=== PATIENT | male | born 1965 | race Caucasian/White ===

== ENCOUNTER 2022-03-13 01:51 | Day surgery (SDC) | payer OTHER, SELFPAY ==
[2022-03-12 11:04] VITALS: BMI 28.3
[2022-03-13] VITALS (9 sets, daily range): BP systolic 96–135; BP diastolic 62–112; PULSE 58–79; RESP 12–20; TEMP 36.3–36.6; O2SAT 93–99; BMI 28.8
[2022-03-13 10:09] LABS: Basophils Absolute Auto 0.1 K/mm3 (0.0-0.1); Basophils Percent Auto 0.6 % (0.2-1.2); Eosinophils Absolute Auto 0.2 K/mm3 (0-0.3); Hematocrit 46.2 % (42.0-52.0); Immature Granulocyte Absolute 0.07 K/mm3 (0.00-0.031); Immature Granulocyte Percent A 0.6 % (0-0.5); Lymphocytes Absolute Auto 2.26 K/mm3 (0.9-3.2); Lymphocytes Percent Auto 20.7 % (18.3-44.2); Mean Corpuscular HGB Conc 34.6 g/dl (32-36); Mean Corpuscular Hemoglobin 31.4 pg (26-34); Mean Corpuscular Volume 90.8 fl (80-100); Mean Platelet Volume 8.4 fl (7.4-10.4); Monocytes Absolute Auto 0.9 K/mm3 (0.1-0.6); Monocytes Percent Auto 8.5 % (2.6-8.5); Neutrophils Absolute Auto 7.4 K/mm3 (1.3-6.7); Neutrophils Percent Auto 67.6 % (45.5-73.1); Platelet Count Result 229 k/mm3 (150-375); Red Blood Count 5.09 M/mm3 (4.6-6.20); Red Cell Distribution Width 13.3 % (11.5-14.5); White Blood Count 10.9 K/mm3 (4.5-10.0)
[2022-03-13 10:20] LABS: Anion Gap 11 mmol/L (8-16); Blood Urea Nitrogen 4 mg/dL (9-20); Calcium 9.4 mg/dL (8.4-10.2); Carbon Dioxide 24 mmol/L (22-30); Chloride 104 mmol/L (98-107); Estimated CRCL calculation 96 ml/min; Estimated Glomerular Filt Rate > 60; Glucose 97 mg/dL (65-110); Potassium 3.9 mmol/L (3.4-5.0); Sodium 139 mmol/L (137-145)
[2022-03-13] MEDS: SODIUM CHLORIDE 0.9% IV 500 ML 100 ML IV CONT (10:20)
--- NOTE | 2022-03-13 11:37 | WPDHPUPDATE1 ---
History and Physical Update Update Date/Time: 03/13/22 11:37 History and Physical has been reviewed, including an updated exam of the patient. There are NO changes in the patient's condition. Risks, benefits, and alternatives have been discussed and questions answered. Patient agrees to proceed with procedure.
--- NOTE | 2022-03-13 11:38 | WPDMODSED ---
Moderate Sedation Note-Pt Data Patient Data Diagnosis: dyspnea exertion Present Complaint: dyspnea on exertion Procedure to be performed/Plan: coronary angiogram Allergies Allergy/AdvReac Type Severity Reaction Status Date / Time hydrocodone [From Vicodin] AdvReac Severe Angry Verified 03/13/22 09:50 Home Medications Medication Instructions Recorded Confirmed Type clopidogrel 75 mg tablet 75 mg PO DAILY #90 tabs 01/02/22 03/13/22 Rx folic acid 1 mg tablet 1 mg PO DAILY #90 tabs 01/02/22 03/13/22 Rx lisinopril 5 mg tablet 5 mg PO DAILY #90 tabs 01/02/22 03/13/22 Rx metoprolol succinate 25 mg 12.5 mg PO DAILY #45 tabs 01/02/22 03/13/22 Rx tablet,extended release 24 hr pravastatin 40 mg tablet 40 mg PO QHS #90 tabs 01/02/22 03/13/22 Rx Current Medications: Active Medications Sodium Chloride (Normal Saline Iv) 500 mls @ 100 mls/hr IV CONT .Q5H MILADY Last Admin: 03/13/22 10:20 Dose: 100 mls/hr Sedation/Anesthesia: No previous sedation/anesthesia problems (including family history). [facility] Past Medical History Medical History Anxiety CAD (coronary artery disease) Chronic low back pain Chronic nausea Degenerative disc disease Depression with anxiety Dyslipidemia Essential (primary) hypertension Surgical History Surgical History History of coronary artery stent placement (~09/03/18) Family History Family History Mother Cancer Social History Social History Smoking packs per day: 1 Smoking cigarettes per day: 20.0 Years smoked: 50 Smoking pack-years: 50.00 Smoking status: Heavy tobacco smoker Alcohol intake: current Substance use: current Substance use type: former substance user and marijuana Living arrangements: alone Gender identity (if verbalized by the patient): Male Spiritual care concerns: No Mod Sed Physical Exam Physical Exam Pre Procedural Exam: Normal: Appearance, Eyes, Ears, Nose, Neck, Throat, Airway, Lungs, Heart Size, Heart Rate, Heart Rhythm, Neuro Exam, Abdomen, Liver, Kidneys, Spleen, Breasts, Genitalia, Extremities and Skin Hours since solid foods: 8 Hours since liquid intake: 8 Mallampati Classification: class 1 Internal Medicine - PN: Obj Da Vital Signs Vital Signs: Vital Signs - 24 hr 03/13/22 10:00 Temperature 36.6 C Pulse Rate 79 Respiratory Rate 12 Blood Pressure 112/84 Pulse Oximetry 97 Oxygen Delivery Room Air Meds/Results Medications: Active Medications Generic Name Dose Route Start Last Admin Trade Name Jesusq PRN Reason Stop Dose Admin Sodium Chloride 500 mls @ 100 mls/hr 03/13/22 09:00 03/13/22 10:20 Normal Saline Iv IV CONT 100 mls/hr .Q5H MILADY Administration Labs CBC & Chem 7: 03/13/22 09:48 03/13/22 09:48 Labs: Laboratory Results - last 24 hr 03/13/22 03/13/22 09:48 09:48 WBC 10.9 H RBC 5.09 Hgb 16.0 Hct 46.2 MCV 90.8 MCH 31.4 MCHC 34.6 RDW 13.3 Plt Count 229 MPV 8.4 Immature Gran % (Auto) 0.6 H Neut % (Auto) 67.6 Lymph % (Auto) 20.7 [place] % (Auto) 8.5 Eos % (Auto) 2.0 Baso % (Auto) 0.6 Lymph # (Auto) 2.26 [place] # (Auto) 0.9 H Eos # (Auto) 0.2 Baso # (Auto) 0.1 Abs Immat Gran (auto) 0.07 H Absolute Neuts (auto) 7.4 H Absolute Nucleated RBC 0.0 Nucleated RBC % 0.0 Sodium 139 Potassium 3.9 Chloride 104 Carbon Dioxide 24 Anion Gap 11 BUN 4 L Creatinine 0.70 Estim Creat Clear Calc 96 Estimated GFR > 60 Glucose 97 Calcium 9.4 ASA Classification/Sedation ASA Classification/Sedation ASA Class: I Emergent: No Risks: Risks, benefits and alternatives explained and patient/family accepted plan for sedation. Patient re-evaluated immediately prior to sedation.
--- NOTE | 2022-03-13 12:08 | WPDCARDPROC ---
Cardiac Cath Procedure Note Date of procedure:: 03/13/22 Performing physician:: Ricardo Murdock MD Indication:: dyspnea on exertion, abnormal stress test Brief clinical history:: this is 56-year-old patient who has history of chronic tobacco use, previous stent in the LAD 2019 was evaluated for dyspnea on exertion. Underwent stress test that shows inferior wall fixed defect at the apical area. No active ischemia. Due to continued symptoms and abnormal stress test we decided to bring him here to define coronary anatomy Procedure Procedure performed:: 1-Moderate sedation that started at 11:42 a.m. and ended at 12:03 p.m. with total duration 21 minutes using 2mg of Versed and 100mcg fentanyl. The registered nurse was teresa franks. 2-Selective left and right coronary angiogram. 3-Left heart catheterization with measurement of LVEDP and measurement of gradient across aortic valve. 4-Right common femoral arterial angiogram. 5-Deployment of 6 [place] Angio-Seal. Sedation/Medication given:: Moderate sedation. Access site:: Right common femoral artery. Estimated blood loss:: 10cc Procedure note:: After informed consent patient was brought in to general labor with the was draped and prepped in usual manner. Moderate sedation was given and the right groin was infiltrated using 1% lidocaine. Five [place]an sheath was obtained using micropuncture needle and the modified Seldinger technique. Selective left coronary angiogram was done using JL4 catheter with the tip of the catheter placed in the left main coronary artery. Selective right coronary angiogram was done using JR4 catheter with the tip of the catheter placed to the right coronary artery. After that 5 [place]an pigtail catheter was advanced across the aortic valve into the left ventricle with measurement of LVEDP and measurement of gradient across aortic valve. Right common femoral arterial angiogram was done. Findings:: 1- left coronary artery is a large artery that divides into large LAD, large circumflex artery. Left main is free of disease 2- left anterior descending artery is a large artery that runs and wraps around the apex. there is proximal stent and proximal to the stent there is an area about 30% stenosis. 3- leftcircumflex artery is a large artery. medium size has mid 40% 4- right coronary artery is large artery and dominant with diffuse minimal irregularities 5- LVEDP was 17 lb mm Hgand no gradient across aortic valve. 6- opening arterial pressure was 140/80 and closing pressure was 126/70 7- right femoral artery angiogram shows no significant disease in the right common femoral artery. Conclusion:: patent stent proximal LAD. - nonocclusive CAD as described above Assessment and Plan Assessment and plan (1) Abnormal stress test: Code(s): R94.39 - Abnormal result of other cardiovascular function study Status: Acute Plan continue aspirin and Plavix - tobacco cessation. - aggressive risk factor modification for CAD
== END 2022-03-13 16:00 | disposition home or self-care (01) ==
PROVIDERS: PCP Family Medicine; Visit Provider Internal Medicine Cardiovascular Disease
PROC: 4A023N7 Measurement of Cardiac Sampling and Pressure, Left Heart, Percutaneous Approach (ICD-10-PCS; CPT 93452; principal; 2022-03-13 10:30)
DX: I25.10 Atherosclerotic heart disease of native coronary artery without angina pectoris (principal); R94.39 Abnormal result of other cardiovascular function study; R06.09 Other forms of dyspnea; Z95.5 Presence of coronary angioplasty implant and graft; I10 Essential (primary) hypertension; E78.5 Hyperlipidemia, unspecified; F41.8 Other specified anxiety disorders; Z79.02 Long term (current) use of antithrombotics/antiplatelets; F17.210 Nicotine dependence, cigarettes, uncomplicated
CPT/HCPCS: 36415; 80048; 85025; 93458; A9270; C1760; C1887; C1894; G0269; J1644; J2250; J3010; J7040

== ENCOUNTER 2022-03-24 09:36 | Outpatient (CLI) | payer OTHER, SELFPAY ==
--- NOTE | ~2022-03-24 | XR_ITS ---
EXAMINATION: XR chest 2V DATE: 03/24/2022 10:26 INDICATION: Shortness of breath TECHNIQUE: Frontal and lateral views of the chest are obtained COMPARISON: None available FINDINGS: The lungs are free of acute opacities. No pleural effusion or pneumothorax. The cardiomedia stinal silhouette is normal. There is mild thoracic spondylosis. IMPRESSION: 1. No acute cardiopulmonary abnormality. Reviewed, dictated and finalized at location B.
[2022-03-26 17:49] LABS: Immunoglobulin E 22 kU/L (<=114)
== END 2022-03-24 09:37 | disposition home or self-care (01) ==
LOC: ANHLAB 09:42
PROVIDERS: PCP Family Medicine
DX: R06.02 Shortness of breath (principal); J43.2 Centrilobular emphysema; R06.00 Dyspnea, unspecified; F17.218 Nicotine dependence, cigarettes, with other nicotine-induced disorders; R05.3 Chronic cough
CPT/HCPCS: 36415; 71046; 82785

== ENCOUNTER 2024-09-15 11:15 | Outpatient (RCR) | payer OTHER, SELFPAY ==
--- NOTE | 2024-08-25 10:55 | PTOPEVAL1 ---
Assessment and note entered by Berta Arnold, PT Evaluation Information Assessment Status Evaluation Diagnosis Stiffness of left shoulder, M25.612 ICD-10 Condition Codes (PT) Pain in left shoulder M25.512,Weakness R53.1 Onset Around end of 07/2024 Subjective Information Patient reports difficulty lifting L arm up that has been occurring for last 2-3 weeks. Pt has santo taking the R hand to lift the L arm up to stretch it. Patient noticed when putting dishes up in the cabinet with the L arm that it was difficulty and dishes felt really heavy. Patient reports being ambidextrous; so has using more of the R arm for lifting objects up. Pt reports not taking any medication to relieve the pain for L shoulder; but takes pain medication for chronic low back. Patient reports stabbing pain on the anterior side near pec major and posterior side of shoulder near inferior boarder of scapula. Reported Pain Level Pain Score 1: Self Report Assessment PT Clinical Summary Patient seen for L shoulder pain specifically with reaching up and over head movements. Pt demonstrates impaired scapular mechanics, postural alignment, shoulder range of motion with compensation and pain, and weakness. Patient presents with dysfunction of L rotator cuff muscles due to positive special test of empty can that is limiting his ability to perform functional activities. Patient would benefit from physical therapy to address these deficits and accomplish goals. Plan of Care Interventions Electrical Stimulation,Hot Pack/Cold Pack,Manual Therapy,Neuro Re-education,Therapeutic Activities, Therapeutic Exercise PT Services Indicated Yes Treatment Frequency and 2x/week for 12 visits Duration These treatments will address the objective and functional deficits as defined above. The patient will be advanced safely and appropriately in order for the patient to progress towards his/her prior level of function. Additional exercises will be introduced and as well as a comprehensive home exercise program upon discharge, if needed, ?to ensure carryover of functional gains achieved in the clinic. This treatment plan has been reviewed and agreement upon by the patient.
--- NOTE | 2024-08-25 16:39 | OPREHPOC ---
Outpatient Therapy Plan of Care This is a Multidisciplinary Plan of Care that may contain components documented by all disciplines (PT, OT, and ST.) PT Problem 1 PT Problem #1 Knowledge Deficit PT Goal 1 Goal / Goal Update Patient will demonstrate independence with HEP for shoulder strengthening, flexibility, and ROM Target Visit 12 PT Problem 2 PT Problem #2 Impaired Range of Motion PT Goal 1 Goal / Goal Update Patient will demonstrate increase L shoulder ROM for shoulder flexion and abduction by 5 degrees with minimal compensation and help from R arm. Target Visit 6 PT Goal 2 Goal / Goal Update Patient will demonstrate increase L shoulder ROM - shoulder flexion to >165 degrees and abduction > 150 degrees- to end range without help from R arm, decrease upper trap compensation, and proper scapular mechanics to allow for reaching overhead movements. Target Visit 12 PT Problem 3 PT Problem #3 Impaired Strength PT Goal 1 Goal / Goal Update Patient will demonstrate improved LUE muscle strength 4/5 Target Visit 6 PT Goal 2 Goal / Goal Update Patient will demonstrate improved LUE muscle strength 4+/5 Target Visit 12
--- NOTE | 2024-09-15 11:48 | PTOPDC ---
Assessment and note entered by Berta Arnold, PT Evaluation Information Assessment Status Discharge Diagnosis Stiffness of left shoulder, M25.612 ICD-10 Condition Codes (PT) Pain in left shoulder M25.512,Weakness R53.1 Onset Around end of 07/2024 Subjective Information Pt reports pain has resolved in the left shoulder. Notes has been able lift his dishes to the overhead cabinet and use left arm to drive without issue. Is independent in his exercises. Has not had difficulty with activities in the last couple weeks. Feels 98% better, last little bit is getting endurance back. Reported Pain Level Pain Score 0: Self Report Assessment PT Clinical Summary Pt attended therapy consistently for 8 visits. He has been compliant in his HEP and reports while doing his HEP one night felt a pop in his shoulder. After that he noted he was able to move through full ROM without pain. Evaluation today shows full range, and increased strength. He has met his all accept one set of goals related to strength of the arm. He does still show a (+) empty can test suggestive of supraspinatus deficit however he reports being fully functional in his activities without difficulty. He has been educated in progression of independent HEP and provided materials to do so. Thus patient is being discharged from therapy services for completion of program. Plan of Care PT Services Indicated No
== END 2024-09-15 12:35 | disposition home or self-care (01) ==
LOC: ANHHIPT 11:15
PROVIDERS: PCP Nurse Practitioner Family; Visit Provider Nurse Practitioner Family
DX: M25.612 Stiffness of left shoulder, not elsewhere classified (principal)
CPT/HCPCS: 97110; 97112; 97140; 97162; 97750